=== PATIENT | female | born 1960 | race Caucasian/White ===

== ENCOUNTER 2018-09-22 11:37 | Emergency (ER) | payer OTHER ==
[~2018-09-22] VITALS: Wt 49.2 kg
--- NOTE | 2018-09-22 13:56 | ERD ---
ER Documentation Chief Complaint Chief Complaint ap HPI The patient is a 58-year-old female, presenting to the ER because of right low back pain, radiating to the right flank, and right lower quadrant that began around 11 AM this morning. She had similar symptoms previously, denies fever, chills, neck pain, chest pain, vomiting, complains of dysuria, denies hematuria, diarrhea, constipation. She does not drink, smokes socially. Past medical history: Dyslipidemia, gastritis Past surgical history: Cholecystectomy, hysterectomy ROS All systems reviewed and are negative except as per history of present illness. Medications Home Meds Active Scripts Ibuprofen* (Motrin*) 600 Mg Tab, 600 MG PO Q6H PRN for PAIN AND OR ELEVATED TEMP, #20 TAB Prov:ANAYELI MUNOZ MD 09/22/18 Allergies Allergies: Coded Allergies: No Known Allergy (Unverified , 09/22/18) Physical Exam Vitals Vital Signs Date Temp Pulse Resp B/P (MAP) Pulse Ox O2 O2 Flow FiO2 Time Delivery Rate 09/22/18 98.1 67 16 112/73 100 Room Air 16:57 (86) 09/22/18 69 17 115/69 100 Room Air 16:10 (84) 09/22/18 74 17 139/78 100 Room Air 14:22 (98) 09/22/18 97.0 78 20 118/20 100 12:18 (52) Physical Exam Const: No acute distress. Head: Atraumatic. Eyes: Normal Conjunctiva. ENT: Normal External Ears, Nose and Mouth. Neck: Full range of motion. No meningismus. Resp: Clear to auscultation bilaterally. Cardio: Regular rate and rhythm. Abd: Soft, non distended, normal bowel sounds, mild right flank tenderness, no rigidity/rebound/CVA tenderness Skin: No petechiae or rashes. Back: No midline or flank tenderness. Ext: No cyanosis, or edema. Neur: Awake and alert. No focal deficit Psych: Normal Mood and Affect. Result Diagram: 09/22/18 1412 09/22/18 1412 Results 24 hrs Laboratory Tests Test 09/22/18 14:12 09/22/18 14:19 White Blood Count 8.8 10^3/ul Red Blood Count 4.75 10^6/ul Hemoglobin 13.4 g/dl Hematocrit 40.7 % Mean Corpuscular Volume 85.7 fl Mean Corpuscular Hemoglobin 28.2 pg Mean Corpuscular Hemoglobin Concent 32.9 g/dl Red Cell Distribution Width 13.8 % Platelet Count 249 10^3/UL Mean Platelet Volume 8.9 fl Immature Granulocytes % 0.500 % Neutrophils % 68.6 % Lymphocytes % 24.0 % Monocytes % 4.8 % Eosinophils % 1.6 % Basophils % 0.5 % Nucleated Red Blood Cells % 0.0 /100WBC Immature Granulocytes # 0.040 10^3/ul Neutrophils # 6.0 10^3/ul Lymphocytes # 2.1 10^3/ul Monocytes # 0.4 10^3/ul Eosinophils # 0.1 10^3/ul Basophils # 0.0 10^3/ul Nucleated Red Blood Cells # 0.0 10^3/ul Sodium Level 142 mmol/L Potassium Level 4.0 mmol/L Chloride Level 104 mmol/L Carbon Dioxide Level 26 mmol/L Anion Gap 12 Blood Urea Nitrogen 15 mg/dl Creatinine 0.67 mg/dl Est Glomerular Filtrat Rate mL/min > 60 mL/min Glucose Level 90 mg/dl Calcium Level 9.8 mg/dl Total Bilirubin 0.3 mg/dl Direct Bilirubin 0.00 mg/dl Indirect Bilirubin 0.3 mg/dl Aspartate Amino Transf (AST/SGOT) 22 IU/L Alanine Aminotransferase (ALT/SGPT) 17 IU/L Alkaline Phosphatase 88 IU/L Total Protein 8.3 g/dl Albumin 4.8 g/dl Globulin 3.50 g/dl Albumin/Globulin Ratio 1.37 Lipase 51 U/L Bedside Urine pH (LAB) 5.5 Bedside Urine Protein (LAB) Negative Bedside Urine Glucose (UA) Negative Bedside Urine Ketones (LAB) Negative Bedside Urine Blood 1+ Bedside Urine Nitrite (LAB) Negative Bedside Urine Leukocyte Esterase (L Negative Current Medications Medications Dose Sig/Jared Start Time Status Last (Trade) Ordered Route PRN Stop Time Admin Dose Reason Admin Sodium 1,000 ml @ Q1H ONCE 09/22/18 DC 09/22/18 Chloride 1,000 mls/hr IV 14:30 14:39 09/22/18 15:29 Ketorolac 30 mg ONCE STAT 09/22/18 DC 09/22/18 Tromethamine IV 14:17 14:39 (Toradol) 09/22/18 14:19 Procedures/MDM [place] [address] Radiology Main Line: [phone] DIAGNOSTIC IMAGING REPORT Patient: PHILLIP MOORE : 1960 Age: 58 Sex: F [id number] DOS: 09/22/18 1417 Ordering MD: ANAYELI MUNOZ MD Location: E/R Room/Bed: PROCEDURE: CT abdomen and pelvis without contrast. CLINICAL INDICATION: Abdominal Pain TECHNIQUE: CT scan of the abdomen and pelvis without contrast was performed and is reconstructed at 2.5 mm contiguous axial intervals from the dome of the diaphragm to the inferior pubic rami.. The patient was scanned without intrave nous contrast. Sagittal and coronal reformatted images were obtained from the axial source images. The calculated radiation dose measures 235 mGy centimeters. The CTDI measures 4.9 mGy. Individualized dose optimization technique was used for the performance of this exam. This included 1. Automated exposure control. 2. Adjustment of the mA and / or kV according to the patient's size. 3. Use of iterative reconstructed technique. COMPARISON: None. FINDINGS: The lung bases are clear of any infiltrate or nodule. No effusion is seen. The liver is of normal size, contour and attenuation with no mass or ductal dilatation. Gallbladder has been removed. No choledocholithiasis is visualized. No splenic, adrenal or pancreatic abnormalities present. Kidneys are of normal size and contour. No hydronephrosis, calculus or masses seen. Ureters are of normal course and caliber with no stone. No bladder mass or stone is present. Uterus is been removed. No adnexal masses seen. There is no aneurysm. No adenopathy is present. No bowel mass or obstruction is present. The appendix is normal. No phlegmon, ascites or pneumoperitoneum is visualized. The osseous structures are intact. IMPRESSION: No evidence of urolithiasis, obstructive uropathy, diverticulitis or appendicitis. Cholecystectomy. Hysterectomy. .Arsalan Costa MD, MD Date Time Electronically viewed and signed by .Arsalan Costa MD, on 09/22/2018 15:11 .A/ CC: ANAYELI MUNOZ MD [id number] MEDICAL MAKING DECISION: The patient is a 58-year-old female, presenting with acute abdominal pain, most likely recently passed kidney stones, was treated with 1 L normal saline for clinical dehydration, Toradol 30 mg IV for pain with good response, is stable for outpatient follow-up The differential diagnoses considered include but are not limited to cholelithiasis, cholecystitis, choledocholithiasis, cholangitis, pancreatitis, hepatitis, gastritis, peptic ulcer disease, gastric ulcer, appendicitis, cystitis, diverticulitis, partial small bowel obstruction. Departure Diagnosis: Primary Impression: Abdominal pain Condition: Good Comments She was discharged with Motrin I discussed the findings with the patient. I advised the patient to follow-up with the primary physician in about 2-3 days, sooner if needed and return if any concern. Disclaimer: Inadvertent spelling and grammatical errors are likely due to EHR/dictation software use and do not reflect on the overall quality of patient care. Also, please note that the electronic time recorded on this note does not necessarily reflect the actual time of the patient encounter. ANAYELI MUNOZ MD Sep 22, 2018 13:56
[2018-09-22] MEDS ORDERED: KETOROLAC 30 MG INJ IV STA (14:17)
[2018-09-22] MEDS ORDERED: SOD CHLORIDE 0.9% 1,000 ML IV ONE (14:30)
[2018-09-22] MEDS ORDERED: IBUP-1542 PO (16:32)
[2018-09-22 16:57] VITALS: BP 112/73; PULSE 67; RESP 16
== END 2018-09-22 17:00 | disposition home or self-care (01) ==
LOC: E/R 11:37
DX: R10.9 Unspecified abdominal pain (principal)
CPT/HCPCS: 36415; 74176; 80053; 81003; 83690; 85025; 96374; J1885; J7030; Z7502

== ENCOUNTER 2018-11-29 03:38 | Emergency (ER) | payer OTHER ==
[~2018-11-29] VITALS: Ht 152.4 cm; Wt 50.0 kg
[~2018-11-29 03:38] MED LIST: IBUP-1542 PO
[2018-11-29 03:42] VITALS: Ht 152.4 cm; Wt 50.0 kg
[2018-11-29] MEDS ORDERED: ONDANSETRON 4 MG INJ IV ONE (04:05)
[2018-11-29] MEDS ORDERED: morphine 4 MG/ML VIAL IV ONE (04:05)
[2018-11-29] MEDS ORDERED: ONDANSETRON 4 MG INJ ONE (04:05)
[2018-11-29] MEDS ORDERED: SOD CHLORIDE 0.9% 1,000 ML IV ONE (05:00)
--- NOTE | 2018-11-29 05:49 | ERD ---
ER Documentation Chief Complaint Chief Complaint upper abd/chest pain x 1 hour HPI This 58-year-old female who presents for evaluation of abdominal pain from the left upper quadrant radiating to right upper quadrant for the last hour. She denies any shortness of breath, denies fever. She has not had any nausea or vomiting, symptoms are constant. There are no alleviating or aggravating factors. ROS All systems reviewed and are negative except as per history of present illness. Medications Home Meds Active Scripts Ibuprofen* (Motrin*) 600 Mg Tab, 600 MG PO Q6H PRN for PAIN AND OR ELEVATED TEMP, #20 TAB Prov:ANAYELI MUNOZ MD 09/22/18 Allergies Allergies: Coded Allergies: No Known Allergy (Unverified , 11/29/18) PMhx/Soc Hx Cardiac Disorders: Yes (CHOLESTEROL ) Hx Miscellaneous Medical Probl: No Hx Alcohol Use: No Hx Substance Use: No Hx Tobacco Use: No Smoking Status: Never smoker Physical Exam Vitals Vital Signs Date Temp Pulse Resp B/P (MAP) Pulse Ox O2 O2 Flow FiO2 Time Delivery Rate 11/29/18 97.6 75 18 132/82 99 Room Air 03:59 (99) 11/29/18 97.6 82 18 166/69 99 03:42 (101) Physical Exam Const: No acute distress Head: Atraumatic Eyes: Normal Conjunctiva ENT: Normal External Ears, Nose and Mouth. Neck: Full range of motion. No meningismus. Resp: Clear to auscultation bilaterally, no wheezes rales or rhonchi Cardio: Regular rate and rhythm, no murmurs Abd: Soft, there is tenderness over the left upper quadrant, there is no rebound or guarding, non distended. Normal bowel sounds Skin: No petechiae or rashes Back: No midline or flank tenderness Ext: No cyanosis, or edema Neur: Awake and alert Psych: Normal Mood and Affect Result Diagram: 11/29/18 0355 11/29/18 0355 Results 24 hrs Laboratory Tests Test 11/29/18 03:55 White Blood Count 6.2 10^3/ul Red Blood Count 4.72 10^6/ul Hemoglobin 13.0 g/dl Hematocrit 39.3 % Mean Corpuscular Volume 83.3 fl Mean Corpuscular Hemoglobin 27.5 pg Mean Corpuscular Hemoglobin Concent 33.1 g/dl Red Cell Distribution Width 13.4 % Platelet Count 234 10^3/UL Mean Platelet Volume 9.3 fl Immature Granulocytes % 0.200 % Neutrophils % 39.2 % Lymphocytes % 49.7 % Monocytes % 5.9 % Eosinophils % 4.5 % Basophils % 0.5 % Nucleated Red Blood Cells % 0.0 /100WBC Immature Granulocytes # 0.010 10^3/ul Neutrophils # 2.4 10^3/ul Lymphocytes # 3.1 10^3/ul Monocytes # 0.4 10^3/ul Eosinophils # 0.3 10^3/ul Basophils # 0.0 10^3/ul Nucleated Red Blood Cells # 0.0 10^3/ul Sodium Level 141 mmol/L Potassium Level 3.3 mmol/L Chloride Level 107 mmol/L Carbon Dioxide Level 24 mmol/L Anion Gap 10 Blood Urea Nitrogen 16 mg/dl Creatinine 0.70 mg/dl Est Glomerular Filtrat Rate mL/min > 60 mL/min Glucose Level 101 mg/dl Calcium Level 9.4 mg/dl Total Bilirubin 0.4 mg/dl Direct Bilirubin 0.00 mg/dl Indirect Bilirubin 0.4 mg/dl Aspartate Amino Transf (AST/SGOT) 24 IU/L Alanine Aminotransferase (ALT/SGPT) 16 IU/L Alkaline Phosphatase 96 IU/L Troponin I < 0.012 ng/ml Total Protein 7.7 g/dl Albumin 4.3 g/dl Globulin 3.40 g/dl Albumin/Globulin Ratio 1.26 Lipase 139 U/L Current Medications Medications Dose Sig/Jared Start Time Status Last (Trade) Ordered Route PRN Stop Time Admin Dose Reason Admin Morphine 4 mg ONCE ONCE 11/29/18 DC 11/29/18 Sulfate IV 04:05 11/29/18 04:09 (morphine) 04:06 Ondansetron 4 mg ONCE ONCE 11/29/18 DC 11/29/18 HCl (Zofran IV 04:05 11/29/18 04:09 Inj) 04:06 Ondansetron 4 mg STK-MED 11/29/18 DC HCl (Zofran ONCE .ROUTE 04:05 11/29/18 Inj) 04:06 Sodium 1,000 ml @ Q1H ONCE 11/29/18 11/29/18 Chloride 1,000 mls/hr IV 05:00 11/29/18 05:01 05:59 Procedures/MDM This is a 58-year-old female presents for ablation of abdominal pain. On my exam she had some tenderness over her left upper quadrant, however she had no peritoneal signs, her lab work-up was overall unremarkable, showing no leukocytosis, and no evidence of metabolic acidosis. Given her age, cardiac work-up was also ordered, her troponin was negative and her EKG was unremarkable, currently pending is her CT abdomen pelvis, if negative I suspect that she will most likely be able to be discharged home. EKG: Rate/Rhythm: Normal Sinus Rhythm QRS, ST, T-waves: No changes consistent w/ acute ischemia Impression: No evidence of ischemia or arrhythmia Departure Diagnosis: Primary Impression: Abdominal pain Abdominal location: unspecified location Qualified Codes: R10.9 - Unspeci fied abdominal pain Condition: Stable YELENA HEALY MD Nov 29, 2018 05:49
[2018-11-29] MEDS ORDERED: FAMO-96 PO (05:50)
[2018-11-29] MEDS ORDERED: OMEP20CA16 PO (06:02)
[2018-11-29] MEDS ORDERED: NALOXONE 2 MG SYG ONE (06:28)
[2018-11-29 08:02] VITALS: BP 125/68; PULSE 68; RESP 18
== END 2018-11-29 08:37 | disposition home or self-care (01) ==
LOC: E/R 03:38
DX: R10.12 Left upper quadrant pain (principal)
CPT/HCPCS: 36415; 71045; 74176; 80053; 81001; 83690; 84484; 85025; 93005; 96374; 96375; J2270; J2310; J2405; J7030; Z7502